=== PATIENT | female | born 1990 | race Caucasian/White ===

== ENCOUNTER 2023-10-11 09:53 | Emergency (ER) | payer BC, MEDICAID, SELFPAY ==
[2023-10-11 09:55] VITALS: BP 136/88
[2023-10-11 10:18] LABS: % Basophils 0.6 % (0-2); % Eosinophils 0.9 % (0-6); % Immature Granulocytes 0.2 % (0-0.5); % Monocytes 3.7 % (1.7-9.3); % Neutrophils 80.6 % (42.2-75.2); Absolute Basophils 0.1 10^3/uL (0-0.2); Absolute Eosinophils 0.1 10^3/uL (0-0.7); Absolute Lymphocytes 1.3 10^3/uL (1.2-3.4); Absolute Monocytes 0.3 10^3/uL (0.1-0.6); Absolute Neutrophils 7.5 10^3/uL (1.4-6.5); Hematocrit 41.9 % (37.0-47.0); Hemoglobin 14.8 g/dL (12.0-16.0); Mean Corp Hgb Conc. 35.3 g/dL (33.0-37.0); Mean Corpuscular Hgb 30.8 pg (27.0-31.0); Mean Corpuscular Volume 87.3 fL (81.0-99.0); Mean Platelet Volume 11.4 fL (7.4-10.4); Nucleated Red Blood Cells % 0 %; Platelet Count 306 10^3/uL (130-400); Red Cell Dist. Width 13.2 % (11.5-14.5); White Blood Cell Count 9.2 10^3/uL (4.8-10.8)
[2023-10-11 10:26] LABS: ALT (SGPT) 23 U/L (0-35); AST (SGOT) 21 U/L (14-36); Albumin 4.2 g/dl (3.5-5.0); Alkaline Phosphatase 66 U/L (38-126); Blood Urea Nitrogen 18 mg/dl (7-17); Calcium 9.3 mg/dl (8.4-10.2); Carbon Dioxide 24 mmol/L (22-30); Chloride 102 mmol/L (98-107); Glucose 97 mg/dl (70-99); Sodium 137 mmol/L (135-145); Total Bilirubin 0.7 mg/dl (0.2-1.3); Total Protein 6.6 g/dl (6.3-8.2); eGFR > 60.00
[2023-10-11 10:29] LABS: HCG, Serum Qualitative Screen Negative
[2023-10-11 10:44] LABS: Lipase 86 U/L (23-300)
[2023-10-11] MEDS: OMNIPAQUE 50 ML PO (11:48)
--- NOTE | 2023-10-11 12:53 | ED.GENMED ---
History of Present Illness
General
Chief Complaint: Abdominal Pain
Source: patient
Exam Limitations: none
Time Seen by Provider: 10/11/23 10:42
Nursing documentation reviewed up to this point in time: agreed with
Travel History
Have you had any contact with someone who has COVID-19?: No
Do you have any symptoms of coronavirus? Fever > 100 degrees, chills, cough, shortness of breath, sore throat, loss of taste or smell, muscle aches, or headache?: No
History of Present Illness
History of Present Illness:
32-year-old female with past medical history of fatty liver disease, hypertension presenting to the emergency department today with concerns of left upper abdominal worsening over the past few days but somewhat present over the past few months. She
discussed this with her liver doctor apparently earlier today who told her to go to the ER for CT scan. Denies chest pain shortness of breath has been able to tolerate by mouth denies significant changes in bowel movements.
Review of Systems
Review of Systems
Allergies reviewed?: Yes
All Other Systems: ROS reviewed and negative except as documented in HPI and ROS
Phy Exam
Physical Exam
Physical Exam:
GENERAL: Alert , in no apparent distress
EYE: pupils equal and reactive
NECK: Supple, no significant adenopathy.
ENT: o/p clr, mmm.
CARDIAC: Regular rate and rhythm .
LUNGS: Clear breath sounds bilaterally, no acute respiratory distress, no wheezes/rales/rhonchi
ABDOMEN: Left upper quadrant abdominal pain otherwise soft benign abdomen.
NEUROLOGICAL: Alert and oriented, no focal neuro deficits
SKIN: Warm and dry, skin intact.
MUSCULOSKELETAL: No edema, well perfused.
PSYCH: Normal and appropriate interaction.
Course
Orders/Labs/Results
Orders:
Orders
10/11/23 09:59
Test Result ONCE
10/11/23 10:02
Complete Blood Count/With Diff Urgent
Comprehensive Metabolic Panel Urgent
HCG, Serum Qualitative Screen Urgent
Lipase Urgent
10/11/23 11:37
CT Abd/pel W Iv And Oral Contr Urgent
Comment:
Reason For Exam: luq pain
Iohexol [Omnipaque] See Protocol PO NOW STA
Abnormal Lab Results
10/11/23
10:02
MPV 11.4 H fL
(7.4-10.4)
Absolute Neuts (auto) 7.5 H 10^3/uL
(1.4-6.5)
Neutrophils % 80.6 H %
(42.2-75.2)
Lymphocytes % 14.0 L %
(20.5-51.1)
BUN 18 H mg/dl
(7-17)
10/11/23 10:02
10/11/23 10:02
Vital Signs
Initial and Last Documented VS:
Initial Vital Signs
Temp Pulse Resp BP Pulse Ox
97.9 F 99 18 136/88 99
10/11/23 09:55 10/11/23 09:55 10/11/23 09:55 10/11/23 09:55 10/11/23 09:55
Last Documented Vital Signs
Temp Pulse Resp BP Pulse Ox
97.9 F 85 18 118/80 99
10/11/23 09:55 10/11/23 16:24 10/11/23 09:55 10/11/23 16:24 10/11/23 09:55
MDM/Problems Addressed
MDM/Problems Addressed:
32-year-old female presenting to the emergency department today with concerns of left upper quadrant abdominal pain worsening over the past few days apparently discussed this with her liver doctor that recommended CT scan. Here she does have
reproducible pain to the left upper quadrant plan for CT scan for further assessment. CT scan without emergent findings slight enlargement of the spleen patient was advised for close outpatient follow-up return precautions given.
*Critical Care Note
Total Time (30-74mins, 75-104mins- exclusive of procedures): Not Applicable
ED Attending Note
-
Portions of this chart may have been created with voice recognition software.� Occasional wrong word or��sound alike� substitutions may have occurred due to the inherent limitations of voice recognition software.
Discharge Plan
Departure
Patient Disposition: Home (Routine Discharge)
Date of Disposition: 10/11/23
Time of Disposition: 16:26
Patient with high blood pressure during this ER visit?: No
Condition: Good
Covid-19: Not Applicable
Discharge Problem:
Abdominal pain
Instructions: Abdominal Pain
Prescriptions:
No Action
No Current Medications
0
Referrals:
Renate Lane CRNP [Family Provider] -
Activity Restrictions/Additional Instructions:
You came to the emergency department today with concerns of abdominal discomfort. On CT scan there is no emergent findings but potentially mild large and of the spleen. You will need to follow-up closely with GI. Return to the emergency
department for any worsening, new or concerning symptoms.
Interventions
Interventions:
*Risk Screen - Suicide Last Done: 10/11/23 11:51
*General Assessment Last Done: 10/11/23 11:51
*Neglect/Abuse Screening Last Done: 10/11/23 11:51
ED- Fall Risk Assessment Last Done: 10/11/23 11:51
ZS-Apqsda-Zsxfwbmtzl Assessment Last Done: 10/11/23 11:51
[2023-10-11 13:44] VITALS: BP 119/74
[2023-10-11 16:24] VITALS: BP 118/80
[2023-10-11 16:41] VITALS: BP 118/80
== END 2023-10-11 16:42 | disposition home or self-care (01) ==
LOC: EMR 09:53
PROVIDERS: Emergency Medicine; EMERGENCY PHYSICIAN Emergency Medicine; FAMILY PHYSICIAN Nurse Practitioner Family
DX: R10.12 Left upper quadrant pain (principal); I10 Essential (primary) hypertension
CPT/HCPCS: 99285; 74177; 80053; 83690; 84703; 85025; Q9967

== ENCOUNTER → 2023-10-17 11:01 | Outpatient (REF) | payer BC, MEDICAID, SELFPAY | LOC: RAD 11:01 | PROVIDERS: ATTENDING PHYSICIAN Nurse Practitioner Family | DX: R07.81 Pleurodynia (principal) | CPT/HCPCS: 71101 ==

== ENCOUNTER 2024-01-29 10:32 | Emergency (ER) | payer OTHER, SELFPAY ==
[2024-01-29 10:39] VITALS: BP 129/80
--- NOTE | 2024-01-29 11:37 | ED.GENMED ---
History of Present Illness
<DO Daryn Arroyo Filed: 01/29/24 11:40>
General
Chief Complaint: Musculo-Skeletal Complaint
Source: patient
Time Seen by Provider: 01/29/24 11:20
Travel History
Have you had any contact with someone who has COVID-19?: No
Do you have any symptoms of coronavirus? Fever > 100 degrees, chills, cough, shortness of breath, sore throat, loss of taste or smell, muscle aches, or headache?: No
History of Present Illness
History of Present Illness:
33-year-old female presents emergency room complaining of left upper abdominal pain. Patient has been experiencing left upper abdominal pain for months. It seemed to get worse last night and continues to feel worse today. No nausea, vomiting,
diarrhea or constipation. She denies any fever or chills. Patient was seen here in the emergency room for similar symptoms in early September. He had a CT at that time which showed mild splenomegaly but no other acute abnormalities. She was told
she likely needs an endoscopy but has not scheduled this as of yet.
Phy Exam
<DO Daryn Arroyo Last Filed: 01/29/24 11:40>
Physical Exam
Physical Exam:
General: Awake, Alert, Oriented X3. No acute distress.
Vitals: unremarkable
Head: Atraumatic
Eyes: Pupils equal, EOMI
Throat: Airway intact, no exudates
Neck: Trachea midline
Lungs: Clear and equal b/l
Heart: Regular rate, no murmurs
Abd: Soft, mild left upper quadrant tenderness, No pulsatile mass
Neuro: Nonfocal
Skin: Warm, dry, no rash
Extremities: pulses equal b/l, no edema
Course
<DO Daryn Arroyo Last Filed: 01/29/24 11:40>
Orders/Labs/Results
Orders:
Orders
01/29/24 11:37
Test Result ONCE
01/29/24 11:40
Complete Blood Count/No Diff Urgent
Comprehensive Metabolic Panel Urgent
HCG, Serum Qualitative Screen Urgent
Lipase Urgent
01/29/24 11:49
Urinalysis Reflex To Culture Urgent
Date Specimen was Collected: 01/29/24
Time Specimen was Collected: 11:48
Urine Microscopic Reflex Cult Urgent
Urine Culture Urgent
ERROL Source: U
Specimen Description:
Date Specimen was Collected: 01/29/24
Time Specimen was Collected: 11:48
01/29/24 12:37
Dicyclomine [Bentyl] 20 mg PO NOW STA
Famotidine [Pepcid] 40 mg PO NOW STA
Abnormal Lab Results
01/29/24 01/29/24
11:40 11:49
MPV 10.7 H fL
(7.4-10.4)
BUN 27 H mg/dl
(7-17)
Creatinine 0.5 L mg/dL
(0.6-1.0)
Leukocyte Esterase Rfl 2+ A
(Negative)
Urine Bacteria (Reflex) Few A
(Negative)
01/29/24 11:40
01/29/24 11:40
Vital Signs
Initial and Last Documented VS:
Initial Vital Signs
Temp Pulse Resp BP Pulse Ox
98.3 F 88 18 129/80 98
01/29/24 10:39 01/29/24 10:39 01/29/24 10:39 01/29/24 10:39 01/29/24 10:39
Last Documented Vital Signs
Temp Pulse Resp BP Pulse Ox
98.3 F 79 20 128/65 99
01/29/24 10:39 01/29/24 13:31 01/29/24 13:31 01/29/24 13:31 01/29/24 13:31
<LISA Lee - Last Filed: 02/01/24 09:32>
Orders/Labs/Results
Orders:
Orders
01/29/24 11:37
Test Result ONCE
01/29/24 11:40
Complete Blood Count/No Diff Urgent
Comprehensive Metabolic Panel Urgent
HCG, Serum Qualitative Screen Urgent
Lipase Urgent
01/29/24 11:49
Urinalysis Reflex To Culture Urgent
Date Specimen was Collected: 01/29/24
Time Specimen was Collected: 11:48
Urine Microscopic Reflex Cult Urgent
Urine Culture Urgent
ERROL Source: U
Specimen Description:
Date Specimen was Collected: 01/29/24
Time Specimen was Collected: 11:48
01/29/24 12:37
Dicyclomine [Bentyl] 20 mg PO NOW STA
Famotidine [Pepcid] 40 mg PO NOW STA
Abnormal Lab Results
01/29/24 01/29/24
11:40 11:49
MPV 10.7 H fL
(7.4-10.4)
BUN 27 H mg/dl
(7-17)
Creatinine 0.5 L mg/dL
(0.6-1.0)
Leukocyte Esterase Rfl 2+ A
(Negative)
Urine Bacteria (Reflex) Few A
(Negative)
01/29/24 11:40
01/29/24 11:40
Vital Signs
Initial and Last Documented VS:
Initial Vital Signs
Temp Pulse Resp BP Pulse Ox
98.3 F 88 18 129/80 98
01/29/24 10:39 01/29/24 10:39 01/29/24 10:39 01/29/24 10:39 01/29/24 10:39
Last Documented Vital Signs
Temp Pulse Resp BP Pulse Ox
98.3 F 79 20 128/65 99
01/29/24 10:39 01/29/24 13:31 01/29/24 13:31 01/29/24 13:31 01/29/24 13:31
<LISA Lee - Last Filed: 02/01/24 09:32>
*Critical Care Note
Total Time (30-74mins, 75-104mins- exclusive of procedures): Not Applicable
<LISA Lee - Last Filed: 02/01/24 09:32>
Update Note
Update Note:
Patient's urine culture found to be positive for E. coli. I did speak with patient at home and a prescription for Keflex 5 mg twice a day for the next 7 days was sent to patient's pharmacy.
ED Attending Note
<Krzysztof Kulkarni DO - Last Filed: 01/29/24 11:40>
-
Portions of this chart may have been created with voice recognition software.� Occasional wrong word or��sound alike� substitutions may have occurred due to the inherent limitations of voice recognition software.
Discharge Plan
Departure
Patient Disposition: Home (Routine Discharge)
Date of Disposition: 01/29/24
Time of Disposition: 13:12
Patient with high blood pressure during this ER visit?: No
Condition: Good
Discharge Problem:
Abdominal pain, Gastritis
Instructions: Gastritis ED
Prescriptions:
New
pantoprazole [Protonix] 40 mg tablet,delayed release (DR/EC)
40 mg PO DAILY Qty: 30 0RF
Referrals:
Renate Lane CRNP [Family Provider] -
Interventions
Interventions:
*Risk Screen - Suicide Last Done: 01/29/24 11:30
*General Assessment Last Done: 01/29/24 11:30
*Neglect/Abuse Screening Last Done: 01/29/24 11:30
*ED COVID-19 Vaccine History Last Done: 01/29/24 11:30
*Nursing Disposition Last Done: 01/29/24 13:31
ED-Musculoskeletal Assessment Last Done: 01/29/24 11:30
Discharge Date and Time
Discharge Date/Time: 01/29/24 13:33
Print Language: BAHRAINI
[2024-01-29 11:59] LABS: Hematocrit 41.7 % (37.0-47.0); Hemoglobin 14.3 g/dL (12.0-16.0); Mean Corp Hgb Conc. 34.3 g/dL (33.0-37.0); Mean Corpuscular Hgb 30.6 pg (27.0-31.0); Mean Corpuscular Volume 89.1 fL (81.0-99.0); Mean Platelet Volume 10.7 fL (7.4-10.4); Platelet Count 294 10^3/uL (130-400); Red Blood Cell Count 4.68 10^6/uL (4.20-5.40); Red Cell Dist. Width 12.7 % (11.5-14.5); White Blood Cell Count 9.7 10^3/uL (4.8-10.8)
[2024-01-29 12:01] LABS: Urine Albumin Negative (Neg - Trace); Urine Bilirubin Negative (Negative); Urine Character Clear (Clear); Urine Color Yellow; Urine Glucose Negative (Negative); Urine Ketone Negative (Negative); Urine Leukocyte 2+ (Negative); Urine Nitrite Negative (Negative); Urine Occult Blood Negative (Negative); Urine Specific Gravity 1.025 (<1.030); Urine Urobilinogen Negative (Neg - 1+)
[2024-01-29 12:14] LABS: Urine Bacteria Few (Negative); Urine Red Blood Cell 0-2 /HPF (0-2)
[2024-01-29 12:18] LABS: HCG, Serum Qualitative Screen Negative
[2024-01-29 12:25] LABS: ALT (SGPT) 18 U/L (0-35); AST (SGOT) 20 U/L (14-36); Albumin 4.1 g/dl (3.5-5.0); Alkaline Phosphatase 52 U/L (38-126); Blood Urea Nitrogen 27 mg/dl (7-17); Calcium 9.5 mg/dl (8.4-10.2); Carbon Dioxide 25 mmol/L (22-30); Chloride 106 mmol/L (98-107); Glucose 78 mg/dl (70-99); Potassium 3.9 mmol/L (3.5-5.1); Sodium 139 mmol/L (135-145); Total Bilirubin 0.3 mg/dl (0.2-1.3); Total Protein 6.5 g/dl (6.3-8.2); eGFR > 60.00
[2024-01-29 12:36] LABS: Lipase 127 U/L (23-300)
[2024-01-29] MEDS: BENTYL 20 MG PO (12:48)
[2024-01-29] MEDS: PEPCID 40 MG PO (12:48)
[2024-01-29 13:00] VITALS: BP 115/79
[2024-01-29 13:31] VITALS: BP 128/65
== END 2024-01-29 13:33 | disposition home or self-care (01) ==
LOC: EMR 10:32
PROVIDERS: EMERGENCY PHYSICIAN Emergency Medicine; FAMILY PHYSICIAN Nurse Practitioner Family
DX: R10.12 Left upper quadrant pain (principal)
CPT/HCPCS: 99283; 80053; 81003; 81015; 83690; 84703; 85027; 87077; 87086; 87186

== ENCOUNTER 2024-02-06 09:24 | Emergency (ER) | payer OTHER, SELFPAY ==
[2024-02-06 09:34] VITALS: BP 128/85
--- NOTE | 2024-02-06 10:00 | ED.GENMED ---
History of Present Illness
General
Chief Complaint: Musculo-Skeletal Complaint
Source: patient
Time Seen by Provider: 02/06/24 09:45
Travel History
Have you had any contact with someone who has COVID-19?: No
Do you have any symptoms of coronavirus? Fever > 100 degrees, chills, cough, shortness of breath, sore throat, loss of taste or smell, muscle aches, or headache?: No
History of Present Illness
History of Present Illness:
33-year-old female presents complaining of left upper quadrant abdominal pain. Patient has been seen in the emergency room at least 2 other times for this complaint. She has been having this discomfort for several months. She was recently seen
here by myself and treated with Bentyl and Pepcid. She did not have significant relief. A urine culture at that time did grow E. coli so a prescription for Keflex was sent but this evidently has not helped her symptoms either. No fever or chills.
No diarrhea. No constipation. No nausea or vomiting. Patient takes Tylenol for pain from time to time.
Phy Exam
Physical Exam
Physical Exam:
General: Awake, Alert, Oriented X3. No acute distress.
Vitals: unremarkable
Head: Atraumatic
Eyes: Pupils equal, EOMI
Throat: Airway intact, no exudates
Neck: Trachea midline
Lungs: Clear and equal b/l
Heart: Regular rate, no murmurs
Abd: Soft, no significant tenderness to palpation., No pulsatile mass
Neuro: Nonfocal
Skin: Warm, dry, no rash
Extremities: pulses equal b/l, no edema
Course
Orders/Labs/Results
Orders:
Orders
02/06/24 09:57
US Abdomen Complete/Upper Urgent
Comment:
Reason For Exam: upper abd pain
02/06/24 11:05
Complete Blood Count/With Diff Urgent
Comprehensive Metabolic Panel Urgent
Lipase Urgent
Abnormal Lab Results
02/06/24
11:05
Absolute Neuts (auto) 8.8 H 10^3/uL
(1.4-6.5)
Neutrophils % 83.2 H %
(42.2-75.2)
Lymphocytes % 10.8 L %
(20.5-51.1)
BUN 32 H mg/dl
(7-17)
Creatinine 0.4 L mg/dL
(0.6-1.0)
ALT 43 H U/L
(0-35)
02/06/24 11:05
02/06/24 11:05
Vital Signs
Initial and Last Documented VS:
Initial Vital Signs
Temp Pulse Resp BP Pulse Ox
99.5 F 100 18 128/85 98
02/06/24 09:34 02/06/24 09:34 02/06/24 09:34 02/06/24 09:34 02/06/24 09:34
Last Documented Vital Signs
Temp Pulse Resp BP Pulse Ox
99.5 F 100 18 128/85 98
02/06/24 09:34 02/06/24 09:34 02/06/24 09:34 02/06/24 09:34 02/06/24 09:34
MDM/Problems Addressed
Differential Diagnosis Includes:
chest wall pain, chronic pain
MDM/Problems Addressed:
Pt has no acute findings on u/s. Labs unremarkable. Stable for dc
*Critical Care Note
Total Time (30-74mins, 75-104mins- exclusive of procedures): Not Applicable
ED Attending Note
-
Portions of this chart may have been created with voice recognition software.� Occasional wrong word or��sound alike� substitutions may have occurred due to the inherent limitations of voice recognition software.
Discharge Plan
Departure
Patient Disposition: Home (Routine Discharge)
Date of Disposition: 02/06/24
Time of Disposition: 11:47
Patient with high blood pressure during this ER visit?: No
Condition: Good
Discharge Problem:
Abdominal pain
Prescriptions:
No Action
pantoprazole [Protonix] 40 mg tablet,delayed release (DR/EC)
40 mg PO DAILY Qty: 30 0RF
cephalexin 500 mg capsule
500 mg PO BID 7 Days Qty: 14 0RF
Referrals:
Luann Miller MD [Active] -
Renate aLne CRNP [Family Provider] -
Activity Restrictions/Additional Instructions:
All of the testing performed in the ER is essentially normal. There is no emergency reason for you pain. You should follow up with your family doctor. I have also given you the contact information for a GI specialist to make an appointment with.
Interventions
Interventions:
*Risk Screen - Suicide Last Done: 02/06/24 09:34
*General Assessment Last Done: 02/06/24 09:34
*Neglect/Abuse Screening Last Done: 02/06/24 09:34
ED- Fall Risk Assessment Last Done: 02/06/24 11:09
*ED COVID-19 Vaccine History Last Done: 02/06/24 11:05
*Nursing Disposition Last Done: 02/06/24 12:06
ED-Musculoskeletal Assessment Last Done: 02/06/24 11:08
Discharge Date and Time
Discharge Date/Time: 02/06/24 12:23
Print Language: EGYPTIAN
[2024-02-06 11:19] LABS: % Basophils 0.6 % (0-2); % Eosinophils 0.6 % (0-6); % Immature Granulocytes 0.4 % (0-0.5); % Lymphocytes 10.8 % (20.5-51.1); % Monocytes 4.4 % (1.7-9.3); % Neutrophils 83.2 % (42.2-75.2); Absolute Basophils 0.1 10^3/uL (0-0.2); Absolute Eosinophils 0.1 10^3/uL (0-0.7); Absolute Lymphocytes 1.2 10^3/uL (1.2-3.4); Absolute Monocytes 0.5 10^3/uL (0.1-0.6); Absolute Neutrophils 8.8 10^3/uL (1.4-6.5); Hematocrit 39.4 % (37.0-47.0); Hemoglobin 13.9 g/dL (12.0-16.0); Mean Corp Hgb Conc. 35.3 g/dL (33.0-37.0); Mean Corpuscular Hgb 30.3 pg (27.0-31.0); Mean Corpuscular Volume 85.8 fL (81.0-99.0); Mean Platelet Volume 10.3 fL (7.4-10.4); Nucleated Red Blood Cells % 0 %; Platelet Count 313 10^3/uL (130-400); Red Blood Cell Count 4.59 10^6/uL (4.20-5.40); Red Cell Dist. Width 12.6 % (11.5-14.5); White Blood Cell Count 10.6 10^3/uL (4.8-10.8)
[2024-02-06 11:34] LABS: ALT (SGPT) 43 U/L (0-35); AST (SGOT) 29 U/L (14-36); Albumin 4.2 g/dl (3.5-5.0); Alkaline Phosphatase 63 U/L (38-126); Blood Urea Nitrogen 32 mg/dl (7-17); Calcium 9.2 mg/dl (8.4-10.2); Carbon Dioxide 27 mmol/L (22-30); Chloride 103 mmol/L (98-107); Glucose 84 mg/dl (70-99); Lipase 112 U/L (23-300); Potassium 4.2 mmol/L (3.5-5.1); Sodium 137 mmol/L (135-145); Total Bilirubin 0.4 mg/dl (0.2-1.3); Total Protein 6.4 g/dl (6.3-8.2); eGFR > 60.00
== END 2024-02-06 12:23 | disposition home or self-care (01) ==
LOC: EMR 09:24
PROVIDERS: EMERGENCY PHYSICIAN Emergency Medicine; FAMILY PHYSICIAN Nurse Practitioner Family
DX: R10.12 Left upper quadrant pain (principal)
CPT/HCPCS: 99284; 76700; 80053; 83690; 85025

== ENCOUNTER 2024-02-08 12:04 | Emergency (ER) | payer OTHER, SELFPAY ==
[2024-02-08 12:10] VITALS: BP 121/72
--- NOTE | 2024-02-08 13:05 | ED.GENMED ---
Addendum entered and electronically signed by Joaquim Dominguez MD 02/12/24 09:44:
Spoke with patient and discussed urine culture result. Advised starting Levaquin which has been sent to her pharmacy along with PMD f/u as outpatient.
Addendum entered and electronically signed by Kendrick Brown PA-C 02/11/24 12:51:
Patient's urine culture with greater than 100,000 CFU of E. coli and Enterococcus. They are both susceptible to levofloxacin. I attempted to contact the patient but was only able to leave a voicemail. Prescription for levofloxacin was sent to
patient's pharmacy.
Original Note:
History of Present Illness
General
Chief Complaint: Abdominal Pain
Source: patient
Time Seen by Provider: 02/08/24 12:34
Travel History
Have you had any contact with someone who has COVID-19?: No
Do you have any symptoms of coronavirus? Fever > 100 degrees, chills, cough, shortness of breath, sore throat, loss of taste or smell, muscle aches, or headache?: No
History of Present Illness
History of Present Illness:
33-year-old female presents complaining of left upper abdominal pain. Third time I have seen the patient for the same complaint. She is at other visits. She has had imaging in the form of CAT scans and ultrasound without clear cause. Labs are
always normal. Patient states the pain just is not going away. She denies shortness of breath.
Phy Exam
Physical Exam
Physical Exam:
General: Awake, Alert, Oriented X3. No acute distress.
Vitals: unremarkable
Head: Atraumatic
Eyes: Pupils equal, EOMI
Throat: Airway intact, no exudates
Neck: Trachea midline
Lungs: Clear and equal b/l
Heart: Regular rate, no murmurs
Abd: Soft, Nontender, No pulsatile mass
Neuro: Nonfocal
Skin: Warm, dry, no rash
Extremities: pulses equal b/l, no edema
Course
Orders/Labs/Results
Orders:
Orders
02/08/24 13:05
Ketorolac [Toradol] 15 mg IV NOW STA
02/08/24 13:11
Complete Blood Count/With Diff Urgent
Comprehensive Metabolic Panel Urgent
D-Dimer Urgent
Lipase Urgent
Urinalysis Reflex To Culture Urgent
Date Specimen was Collected: 02/08/24
Time Specimen was Collected: 13:07
Urine Microscopic Reflex Cult Urgent
Urine Culture Urgent
ERROL Source: U
Specimen Description:
Date Specimen was Collected: 02/08/24
Time Specimen was Collected: 13:07
Abnormal Lab Results
02/08/24
13:11
MPV 10.5 H fL
(7.4-10.4)
Absolute Neuts (auto) 8.1 H 10^3/uL
(1.4-6.5)
Neutrophils % 82.1 H %
(42.2-75.2)
Lymphocytes % 12.2 L %
(20.5-51.1)
BUN 19 H mg/dl
(7-17)
Creatinine 0.5 L mg/dL
(0.6-1.0)
ALT 37 H U/L
(0-35)
Leukocyte Esterase Rfl 1+ A
(Negative)
02/08/24 13:11
02/08/24 13:11
Vital Signs
Initial and Last Documented VS:
Initial Vital Signs
Temp Pulse Resp BP Pulse Ox
98.6 F 92 18 121/72 98
02/08/24 12:10 02/08/24 12:10 02/08/24 12:10 02/08/24 12:10 02/08/24 12:10
Last Documented Vital Signs
Temp Pulse Resp BP Pulse Ox
98.6 F 78 18 121/72 99
02/08/24 12:10 02/08/24 13:46 02/08/24 13:46 02/08/24 12:10 02/08/24 13:46
MDM/Problems Addressed
Differential Diagnosis Includes:
Chronic pain, gastritis, musculoskeletal pain
MDM/Problems Addressed:
Patient's had multiple recent workups. I added a D-dimer onto the blood testing to exclude PE. D-dimer normal. Clinically I have very low suspicion. Patient discharged as there is no further testing we can do in the emergency room for her
complaint. She needs to follow-up with GI as an outpatient.
*Critical Care Note
Total Time (30-74mins, 75-104mins- exclusive of procedures): Not Applicable
ED Attending Note
-
Portions of this chart may have been created with voice recognition software.� Occasional wrong word or��sound alike� substitutions may have occurred due to the inherent limitations of voice recognition software.
Discharge Plan
Departure
Patient Disposition: Home (Routine Discharge)
Date of Disposition: 02/08/24
Time of Disposition: 15:04
Patient with high blood pressure during this ER visit?: No
Condition: Good
Discharge Problem:
Abdominal pain
Prescriptions:
No Action
pantoprazole [Protonix] 40 mg tablet,delayed release (DR/EC)
40 mg PO DAILY Qty: 30 0RF
cephalexin 500 mg capsule
500 mg PO BID 7 Days Qty: 14 0RF
Referrals:
Renate Lane CRNP [Family Provider] -
Interventions
Interventions:
*Risk Screen - Suicide Last Done: 02/08/24 12:46
*General Assessment Last Done: 02/08/24 12:10
*Neglect/Abuse Screening Last Done: 02/08/24 12:46
ED- Fall Risk Assessment Last Done: 02/08/24 15:42
*ED COVID-19 Vaccine History Last Done: 02/08/24 12:10
*Nursing Disposition Last Done: 02/08/24 15:42
OY-Rwxlrn-Ffbeiiljyc Assessment Last Done: 02/08/24 12:46
Discharge Date and Time
Discharge Date/Time: 02/08/24 15:43
Print Language: CHINESE
[2024-02-08] MEDS: TORADOL 15 MG IV (13:10)
[2024-02-08 13:21] LABS: Urine Albumin Negative (Neg - Trace); Urine Bilirubin Negative (Negative); Urine Character Clear (Clear); Urine Color Yellow; Urine Glucose Negative (Negative); Urine Ketone Negative (Negative); Urine Leukocyte 1+ (Negative); Urine Nitrite Negative (Negative); Urine Occult Blood Negative (Negative); Urine Specific Gravity 1.005 (<1.030); Urine Urobilinogen Negative (Neg - 1+)
[2024-02-08 13:23] LABS: % Basophils 0.6 % (0-2); % Eosinophils 0.6 % (0-6); % Immature Granulocytes 0.4 % (0-0.5); % Lymphocytes 12.2 % (20.5-51.1); % Monocytes 4.1 % (1.7-9.3); % Neutrophils 82.1 % (42.2-75.2); Absolute Basophils 0.1 10^3/uL (0-0.2); Absolute Eosinophils 0.1 10^3/uL (0-0.7); Absolute Lymphocytes 1.2 10^3/uL (1.2-3.4); Absolute Monocytes 0.4 10^3/uL (0.1-0.6); Absolute Neutrophils 8.1 10^3/uL (1.4-6.5); Hematocrit 39.1 % (37.0-47.0); Hemoglobin 13.8 g/dL (12.0-16.0); Mean Corp Hgb Conc. 35.3 g/dL (33.0-37.0); Mean Corpuscular Hgb 30.3 pg (27.0-31.0); Mean Corpuscular Volume 85.7 fL (81.0-99.0); Mean Platelet Volume 10.5 fL (7.4-10.4); Nucleated Red Blood Cells % 0 %; Platelet Count 381 10^3/uL (130-400); Red Blood Cell Count 4.56 10^6/uL (4.20-5.40); Red Cell Dist. Width 13.1 % (11.5-14.5); White Blood Cell Count 9.9 10^3/uL (4.8-10.8)
[2024-02-08 13:34] LABS: ALT (SGPT) 37 U/L (0-35); AST (SGOT) 25 U/L (14-36); Albumin 4.4 g/dl (3.5-5.0); Alkaline Phosphatase 59 U/L (38-126); Blood Urea Nitrogen 19 mg/dl (7-17); Calcium 9.3 mg/dl (8.4-10.2); Carbon Dioxide 27 mmol/L (22-30); Chloride 104 mmol/L (98-107); Glucose 78 mg/dl (70-99); Lipase 141 U/L (23-300); Potassium 3.6 mmol/L (3.5-5.1); Sodium 140 mmol/L (135-145); Total Bilirubin 0.3 mg/dl (0.2-1.3); Total Protein 6.8 g/dl (6.3-8.2); eGFR > 60.00
[2024-02-08 13:43] LABS: Urine Squamous Cell >30 /LPF (Few)
[2024-02-08 13:44] LABS: Urine Red Blood Cell None Seen /HPF (0-2); Urine White Cell 0-2 /HPF (0-5)
[2024-02-08 14:24] LABS: D-Dimer < 0.27 ug/mlFEU (0.00-0.50)
== END 2024-02-08 15:43 | disposition home or self-care (01) ==
LOC: EMR 12:04
PROVIDERS: EMERGENCY PHYSICIAN Emergency Medicine; FAMILY PHYSICIAN Nurse Practitioner Family
DX: R10.12 Left upper quadrant pain (principal)
CPT/HCPCS: 99284; 96374; 80053; 81003; 81015; 83690; 85025; 85379; 87071; 87077; 87086; 87186

== ENCOUNTER 2024-02-14 08:24 | Emergency (ER) | payer OTHER, SELFPAY ==
[2024-02-14 08:26] VITALS: BP 123/89
--- NOTE | 2024-02-14 08:51 | ED.GENMED ---
History of Present Illness
General
Chief Complaint: Head Injury
Time Seen by Provider: 02/14/24 08:51
Travel History
Have you had any contact with someone who has COVID-19?: No
Do you have any symptoms of coronavirus? Fever > 100 degrees, chills, cough, shortness of breath, sore throat, loss of taste or smell, muscle aches, or headache?: No
History of Present Illness
History of Present Illness:
HPI: The patient presents with concerns for head trauma. She states she is felt a bump to the right side of her scalp over the past 2 years. She is talk to her primary care doctor about this. She tells me that she was told that if this persist to
go to the emergency department for further evaluation. She also has self-injurious behavior and recurrently strikes her self in the forehead. She denies any other neurologic symptoms including any confusion, speech changes, or extremity weakness.
EXAM:
GENERAL: Well appearing in no distress
CERVICAL SPINE: No midline c-spine tenderness with excellent AROM
HEAD: There is a 2 cm palpable mass to the right side of his parietal scalp that feels to be bony in nature, there is erythema and soft tissue swelling over the forehead and to the upper portion of the nose
CHEST: No chest wall tenderness, normal heart sounds
LUNGS: Equal lung sounds, no respiratory distress
ABDOMEN: No abdominal tenderness, no peritoneal signs
EXTREMITIES: Normal active range of motion, no tenderness
NEURO: Excellent strength all extremities, appropriate mental status, normal speech/language
TIME OF INITIAL ENCOUNTER: 8:50 AM
NUMBER AND COMPLEXITY OF PROBLEMS ADDRESSED AT THE ENCOUNTER
� Chronic conditions affecting care: Stress management problems, high blood pressure, obesity
� Acute Exacerbation and/or Progression of Chronic Illness: This is a subacute problem
� Differential Diagnosis includes: Intracranial hemorrhage, bony overgrowth of the skull
AMOUNT AND/OR COMPLEXITY OF DATA TO BE REVIEWED AND ANALYZED
� I performed an independent evaluation of and my interpretation is:
EKG:
CT: I personally viewed CT imaging of the brain�I agree with radiologist interpretation there is no acute abnormality
X-rays:
Laboratory Studies:
Other:
� Review of other/old records: I reviewed records, the patient has not had neuroimaging
� Clinical information was obtained by an independent historian: None needed
� Prescriptions/Medications Considered but not given:
� Further testing considered but not performed:
RISK OF COMPLICATIONS AND/OR MORBIDITY OR MORTALITY OF PATIENT MANAGEMENT
� Social determinants of health affecting care: Lives at home
� Discussion with other providers:
� Escalation of care including admission/observation vs risk of discharge considered: Given the patient's concerns of recurrent trauma with palpable mass, CT imaging has been ordered which is unremarkable. Patient is to
follow-up with PMD.
Phy Exam
Physical Exam
Physical Exam:
See HPI
Course
Orders/Labs/Results
Orders:
Orders
02/14/24 08:55
CT Head W/o Iv Contrast Urgent
Comment:
Reason For Exam: recurrent head trauma; palp scalp mass on R
Vital Signs
Initial and Last Documented VS:
Initial Vital Signs
Temp Pulse Resp BP Pulse Ox
98.2 F 84 16 123/89 98
02/14/24 08:26 02/14/24 08:26 02/14/24 08:26 02/14/24 08:26 02/14/24 08:26
Last Documented Vital Signs
Temp Pulse Resp BP Pulse Ox
98.2 F 84 16 123/89 98
02/14/24 08:26 02/14/24 08:26 02/14/24 08:26 02/14/24 08:26 02/14/24 08:26
*Critical Care Note
Total Time (30-74mins, 75-104mins- exclusive of procedures): Not Applicable
ED Attending Note
-
Portions of this chart may have been created with voice recognition software.� Occasional wrong word or��sound alike� substitutions may have occurred due to the inherent limitations of voice recognition software.
Discharge Plan
Departure
Patient Disposition: Home (Routine Discharge)
Date of Disposition: 02/14/24
Time of Disposition: 10:36
Patient with high blood pressure during this ER visit?: Yes
Discharge Problem:
Head injury
Instructions: Head Injury in Adults (DC), BLOOD PRESSURE
Prescriptions:
No Action
pantoprazole [Protonix] 40 mg tablet,delayed release (DR/EC)
40 mg PO DAILY Qty: 30 0RF
cephalexin 500 mg capsule
500 mg PO BID 7 Days Qty: 14 0RF
levofloxacin 250 mg tablet
250 mg PO DAILY 3 Days Qty: 3 0RF
Referrals:
Renate Lane CRNP [Family Provider] -
Activity Restrictions/Additional Instructions:
The CAT scan of the brain shows no acute abnormality. Return here if worse. Follow-up your primary care doctor.
Interventions
Interventions:
ED- Neurological Assessment Last Done: 02/14/24 09:12
ED-Skin Assessment Last Done: 02/14/24 09:12
Discharge Date and Time
Print Language: SLOVENIAN
== END 2024-02-14 10:43 | disposition home or self-care (01) ==
LOC: EMR 08:24
PROVIDERS: EMERGENCY PHYSICIAN Emergency Medicine; FAMILY PHYSICIAN Nurse Practitioner Family
DX: S09.90XA Unspecified injury of head, initial encounter (principal); X58.XXXA Exposure to other specified factors, initial encounter
CPT/HCPCS: 99284; 70450

== ENCOUNTER → 2024-02-19 10:40 | Outpatient (REF) | payer OTHER, SELFPAY | LOC: HWRAD 10:40 | PROVIDERS: ATTENDING PHYSICIAN Internal Medicine Gastroenterology; FAMILY PHYSICIAN Nurse Practitioner Family | DX: R10.30 Lower abdominal pain, unspecified (principal) | CPT/HCPCS: 74177; Q9967 ==

== ENCOUNTER → 2024-03-19 16:46 | Outpatient (REF) | payer OTHER, SELFPAY | LOC: MRI 16:46 | PROVIDERS: ATTENDING PHYSICIAN Nurse Practitioner Family | DX: R10.12 Left upper quadrant pain (principal) | CPT/HCPCS: 74183; A9575 ==